=== PATIENT | male | born 2000 ===

== ENCOUNTER → 2018-03-13 | Outpatient (CLI) | payer OTHER ==
[~2018-03-13] MED LIST: AMOX50SU PO; DEXT30SU PO
[2018-03-13 14:42] LABS: BASOPHILS ABSOLUTE AUTO 0.04 K/mm3 (0.00-0.23); BASOPHILS PERCENT AUTO 1 % (0-2); EOSINOPHILS ABSOLUTE AUTO 0.25 K/mm3 (0.00-0.68); EOSINOPHILS PERCENT AUTO 3 % (0-6); Hematocrit 42.9 % (37.0-53.0); Hemoglobin 14.1 g/dL (13.5-17.5); IMMATURE GRAN ABSOLUTE AUTO 0.02 K/mm3 (0.00-0.10); IMMATURE GRAN PERCENT AUTO 0 % (0-1); LYMPHOCYTES ABSOLUTE AUTO 1.84 K/mm3 (0.84-5.20); LYMPHOCYTES PERCENT AUTO 24 % (21-46); MONOCYTES ABSOLUTE AUTO 0.77 K/mm3 (0.16-1.47); MONOCYTES PERCENT AUTO 10 % (4-13); Mean Corpuscular HGB 28.3 pg (26.0-34.0); Mean Corpuscular HGB Conc 32.9 g/dL (31.5-36.5); Mean Corpuscular Volume 86 fL (80-100); Mean Platelet Volume 10.4 fL (9.1-12.4); NEUTROPHILS ABSOLUTE AUTO 4.82 K/mm3 (1.96-9.15); NEUTROPHILS PERCENT AUTO 62 % (41-73); Platelet Count 244 K/mm3 (150-400); RDW Coefficient Variation 12.5 % (11.7-14.2); RDW Standard Deviation 38.6 fL (35.1-46.3); Red Blood Cell Count 4.99 M/mm3 (4.30-5.90); White Blood Cell Count 7.74 K/mm3 (4.00-11.30)
[2018-03-13 14:51] LABS: Alanine Aminotransfer (ALT/SGP 35 U/L (12-78); Alk Phos 131 U/L (40-126); Anion Gap 9 mmol/L (6-16); Aspartate Aminotrans (AST/SGOT 21 U/L (12-37); Bilirubin, Total 0.4 mg/dL (0.1-1.0); Blood Urea Nitrogen 16 mg/dL (8-24); Bun/Creatinine Ratio 15.5 (12.0-20.0); CO2, Blood 28 mmol/L (21-32); Chloride, Blood 104 mmol/L (98-108); Creatinine, Blood 1.03 mg/dL (0.60-1.20); Glomerular Filtration Rate >60 (60-); Glucose, Blood 87 mg/dL (70-99); Potassium, Blood 4.3 mmol/L (3.5-5.5); Sodium, Blood 141 mmol/L (136-145)
== END | disposition home or self-care (01) ==
LOC: LAB EV 14:32 → LAB SHORT 14:32
PROVIDERS: Physician Assistant
DX: R22.42 Localized swelling, mass and lump, left lower limb (principal)
CPT/HCPCS: 80053; 85025

== ENCOUNTER 2023-04-02 20:07 | Emergency (ER) | payer OTHER ==
[~2023-04-02] VITALS: Ht 195.6 cm; Wt 170.1 kg
[2023-04-02 20:24] VITALS: BP 150/86
[2023-04-02] MEDS ORDERED: CEPH500 PO (20:36)
== END 2023-04-02 20:36 | disposition home or self-care (01) ==
LOC: ER 20:07
DX: L03.115 Cellulitis of right lower limb (principal)
CPT/HCPCS: 99282; A9270

== ENCOUNTER 2023-04-08 16:16 | Emergency (ER) | payer OTHER ==
[~2023-04-08] VITALS: Ht 195.6 cm; Wt 170.1 kg
[~2023-04-08 16:16] MED LIST changes: +CEPH500 PO
[2023-04-08 17:22] LABS: BASOPHILS ABSOLUTE AUTO 0.04 K/mm3 (0.00-0.23); BASOPHILS PERCENT AUTO 1 % (0-2); EOSINOPHILS ABSOLUTE AUTO 0.25 K/mm3 (0.00-0.68); EOSINOPHILS PERCENT AUTO 3 % (0-6); Hematocrit 41.8 % (37.0-53.0); Hemoglobin 13.9 g/dL (13.5-17.5); IMMATURE GRAN ABSOLUTE AUTO 0.02 K/mm3 (0.00-0.10); IMMATURE GRAN PERCENT AUTO 0 % (0-1); LYMPHOCYTES ABSOLUTE AUTO 1.86 K/mm3 (0.84-5.20); LYMPHOCYTES PERCENT AUTO 25 % (21-46); MONOCYTES ABSOLUTE AUTO 0.78 K/mm3 (0.16-1.47); MONOCYTES PERCENT AUTO 10 % (4-13); Mean Corpuscular HGB 29.3 pg (26.0-34.0); Mean Corpuscular HGB Conc 33.3 g/dL (31.5-36.5); Mean Corpuscular Volume 88 fL (80-100); NEUTROPHILS PERCENT AUTO 61 % (41-73); Platelet Count 239 K/mm3 (150-400); RDW Coefficient Variation 11.9 % (11.7-14.2); RDW Standard Deviation 38.9 fL (35.1-46.3); Red Blood Cell Count 4.74 M/mm3 (4.30-5.90); White Blood Cell Count 7.55 K/mm3 (4.00-11.30)
[2023-04-08 17:53] LABS: C-REACTIVE PROTEIN, EXT RANGE 1.06 mg/dL (0.000-0.300)
[2023-04-08 17:55] LABS: Albumin/Globulin Ratio 0.9 (0.8-1.8); Bilirubin, Total 0.3 mg/dL (0.1-1.0); Bun/Creatinine Ratio 18.6 (12.0-20.0); Calcium, Blood 8.9 mg/dL (8.5-10.1); Creatinine, Blood 0.91 mg/dL (0.60-1.20); Globulin, Blood 4.3 g/dL (2.2-4.0); Potassium, Blood 3.9 mmol/L (3.5-5.5); Total Protein, Blood 8.3 g/dL (6.4-8.2)
[2023-04-08 19:52] VITALS: BP 140/80
[2023-04-08] MEDS ORDERED: Clindamycin HC150 MG PO (21:07)
== END 2023-04-08 21:22 | disposition home or self-care (01) ==
LOC: ER 16:16
PROVIDERS: Physician Assistant
DX: L03.115 Cellulitis of right lower limb (principal)
CPT/HCPCS: 80053; 85025; 86140; 96374; 99283-25; A9270; J1885

== ENCOUNTER 2023-04-15 22:32 | Emergency (ER) | payer OTHER ==
[~2023-04-15] VITALS: Ht 195.6 cm; Wt 170.1 kg
[~2023-04-15 22:32] MED LIST changes: +Clindamycin HC150 MG PO
[2023-04-15 22:58] VITALS: BP 152/99
[2023-04-16] MEDS ORDERED: Vibramycin100 MG PO (00:44)
== END 2023-04-16 01:07 | disposition home or self-care (01) ==
LOC: ER 22:32
DX: L03.115 Cellulitis of right lower limb (principal); I87.2 Venous insufficiency (chronic) (peripheral); J45.909 Unspecified asthma, uncomplicated
CPT/HCPCS: 99282; A9270

== ENCOUNTER 2023-04-22 03:57 | Inpatient (IN) | payer OTHER ==
[~2023-04-22] VITALS: Ht 195.6 cm; Wt 173.5 kg
[~2023-04-22 03:57] MED LIST changes: +Vibramycin100 MG PO
[2023-04-22 04:39] LABS: BASOPHILS ABSOLUTE AUTO 0.04 K/mm3 (0.00-0.23); BASOPHILS PERCENT AUTO 1 % (0-2); EOSINOPHILS ABSOLUTE AUTO 0.25 K/mm3 (0.00-0.68); EOSINOPHILS PERCENT AUTO 4 % (0-6); Hematocrit 41.3 % (37.0-53.0); Hemoglobin 13.5 g/dL (13.5-17.5); IMMATURE GRAN ABSOLUTE AUTO 0.01 K/mm3 (0.00-0.10); IMMATURE GRAN PERCENT AUTO 0 % (0-1); LYMPHOCYTES ABSOLUTE AUTO 1.69 K/mm3 (0.84-5.20); LYMPHOCYTES PERCENT AUTO 26 % (21-46); MONOCYTES ABSOLUTE AUTO 0.65 K/mm3 (0.16-1.47); MONOCYTES PERCENT AUTO 10 % (4-13); Mean Corpuscular HGB Conc 32.7 g/dL (31.5-36.5); Mean Corpuscular Volume 89 fL (80-100); Mean Platelet Volume 9.9 fL (9.1-12.4); NEUTROPHILS ABSOLUTE AUTO 3.77 K/mm3 (1.96-9.15); NEUTROPHILS PERCENT AUTO 59 % (41-73); Platelet Count 210 K/mm3 (150-400); RDW Coefficient Variation 11.9 % (11.7-14.2); RDW Standard Deviation 37.6 fL (35.1-46.3); Red Blood Cell Count 4.65 M/mm3 (4.30-5.90); White Blood Cell Count 6.41 K/mm3 (4.00-11.30)
[2023-04-22 04:58] LABS: Albumin, Blood 3.6 g/dL (3.4-5.0); Albumin/Globulin Ratio 0.9 (0.8-1.8); Bilirubin, Total 0.4 mg/dL (0.1-1.0); Calcium, Blood 8.8 mg/dL (8.5-10.1); Creatinine, Blood 0.78 mg/dL (0.60-1.20); Globulin, Blood 3.9 g/dL (2.2-4.0); Potassium, Blood 4.2 mmol/L (3.5-5.5); Total Protein, Blood 7.5 g/dL (6.4-8.2)
[2023-04-22 07:47] VITALS: BP 124/89
--- NOTE | 2023-04-22 09:50 | NUR ---
ADMIT: PT ADMITTED TO ROOM 306 @ 0730 THIS SHIFT. IV IN LEFT FOREARM FLUSHES WELL. AT BEDSIDE. PT INDEPENDENT IN ROOM. NO C/O PAIN IN R. LOWER LEG. IGNITION SOURCES IN HOSPITAL GONE OVER WITH PT BY THIS RN AND MANAGER IT SECURITY. PT STATES HE DOES NOT SMOKE AND DOES NOT HAVE A RESEARCH ANIMAL ATTENDANT, MATCHES, OR OTHER FLAMMABLES. PT VERBALIZED UNDERSTANDING. CALL LIGHT IN REACH. NO NEEDS AT THIS TIME.
[2023-04-22 16:58] VITALS: BP 146/76
--- NOTE | 2023-04-22 18:39 | NUR ---
SHIFT SUMMARY: PT A&O X4. PT PLEASANT AND COOPERATIVE WITH CARE. IGNITION SOURCES GONE OVER WITH PT AND AT BEDSIDE. PT DOES NOT SMOKE AND VERBALIZES UNDERSTANDING. PT RECEIVED IV ABX TWICE THIS SHIFT AND TOLERATING WELL. CELLULITIS OUTLINED PER DR. BELLO REQUEST. REDNESS HAS NOT GONE OUTSIDE OF BORDER THIS SHIFT. PT INDEPENDENT IN ROOM. VSS. NO C/O PAIN OR N/V. CALL LIGHT IN REACH. WILL CONTINUE TO MONITOR.
[2023-04-22 19:21] VITALS: BP 125/71
--- NOTE | 2023-04-23 04:13 | NUR ---
SHIFT SUMMARY ADMITTED FOR RLE CELLULITIS. FULL CODE. IV ANTIB RX ARE SCHEDULED. 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 REGULAR DIET, INDEPENDENT, ON RA, A&O X4. FAILED OUTPT PO ANTIB RX PREVIOUS TO ADMIT.
[2023-04-23 05:29] VITALS: BP 132/74
[2023-04-23 07:33] VITALS: BP 124/76
[2023-04-23 07:57] LABS: BASOPHILS ABSOLUTE AUTO 0.03 K/mm3 (0.00-0.23); BASOPHILS PERCENT AUTO 1 % (0-2); EOSINOPHILS PERCENT AUTO 3 % (0-6); Hematocrit 42.9 % (37.0-53.0); Hemoglobin 14.2 g/dL (13.5-17.5); IMMATURE GRAN ABSOLUTE AUTO 0.02 K/mm3 (0.00-0.10); IMMATURE GRAN PERCENT AUTO 0 % (0-1); LYMPHOCYTES ABSOLUTE AUTO 1.36 K/mm3 (0.84-5.20); LYMPHOCYTES PERCENT AUTO 22 % (21-46); MONOCYTES PERCENT AUTO 10 % (4-13); Mean Corpuscular HGB 28.8 pg (26.0-34.0); Mean Corpuscular HGB Conc 33.1 g/dL (31.5-36.5); Mean Corpuscular Volume 87 fL (80-100); Mean Platelet Volume 10.1 fL (9.1-12.4); NEUTROPHILS ABSOLUTE AUTO 3.93 K/mm3 (1.96-9.15); NEUTROPHILS PERCENT AUTO 64 % (41-73); Platelet Count 209 K/mm3 (150-400); RDW Coefficient Variation 11.8 % (11.7-14.2); RDW Standard Deviation 37.9 fL (35.1-46.3); Red Blood Cell Count 4.93 M/mm3 (4.30-5.90); White Blood Cell Count 6.14 K/mm3 (4.00-11.30)
[2023-04-23 08:25] LABS: Albumin, Blood 3.5 g/dL (3.4-5.0); Albumin/Globulin Ratio 0.8 (0.8-1.8); Bilirubin, Total 0.4 mg/dL (0.1-1.0); Bun/Creatinine Ratio 19.1 (12.0-20.0); Calcium, Blood 8.9 mg/dL (8.5-10.1); Creatinine, Blood 0.78 mg/dL (0.60-1.20); Globulin, Blood 4.3 g/dL (2.2-4.0); Potassium, Blood 4.3 mmol/L (3.5-5.5); Total Protein, Blood 7.8 g/dL (6.4-8.2)
[2023-04-23 14:54] VITALS: BP 126/80
[2023-04-23] MEDS ORDERED: SULFAMETHOXAZO1 EAC1 PO (17:31)
--- NOTE | 2023-04-23 17:42 | NUR ---
PT DISCHARGED FROM THE UNIT. IV REMOVED. DISCHARGE INSTRUCTIONS REVIEWED. MEDICATIONS FAXED TO [facility]. INSTRUCTED ON FOLLOW UP APTS. PT AMBULATED OFF THE UNIT
== END 2023-04-23 17:36 | disposition home or self-care (01) | DRG 603 ==
LOC: ER 03:57 → MEDS 06:04
PROVIDERS: Emergency Medicine; Internal Medicine; ADMIT Internal Medicine
DX: L03.115 Cellulitis of right lower limb (principal); Z68.41 Body mass index [BMI] 40.0-44.9, adult; E66.01 Morbid (severe) obesity due to excess calories; J45.909 Unspecified asthma, uncomplicated; I83.93 Asymptomatic varicose veins of bilateral lower extremities; I87.2 Venous insufficiency (chronic) (peripheral); Z79.2 Long term (current) use of antibiotics
CPT/HCPCS: 36415; 80053; 85025; 96374; 96375; 99284-25; A9270; J0690; J2543; J3370; J7050

== ENCOUNTER 2025-07-14 02:50 | Day surgery (SDC) | payer OTHER ==
[~2025-07-14 02:50] MED LIST changes: +SULFAMETHOXAZO1 EAC1 PO
[2025-07-14] MEDS ORDERED: Lidocaine HCl 4% Cream 5 GM ONE (08:20)
== END 2025-07-14 23:00 | disposition home or self-care (01) ==
LOC: WOUND 02:50
DX: I87.311 Chronic venous hypertension (idiopathic) with ulcer of right lower extremity (principal); L97.812 Non-pressure chronic ulcer of other part of right lower leg with fat layer exposed; I87.2 Venous insufficiency (chronic) (peripheral)
CPT/HCPCS: A6213; A9270

== ENCOUNTER 2025-07-22 00:22 | Day surgery (SDC) | payer OTHER | END 2025-07-22 23:00 | disposition home or self-care (01) | LOC: WOUND 00:22 | DX: I87.311 Chronic venous hypertension (idiopathic) with ulcer of right lower extremity (principal); L97.812 Non-pressure chronic ulcer of other part of right lower leg with fat layer exposed; I87.2 Venous insufficiency (chronic) (peripheral) | CPT/HCPCS: A6213; G0463 ==

== ENCOUNTER 2025-07-28 02:34 | Day surgery (SDC) | payer OTHER ==
[2025-07-28] MEDS ORDERED: Lidocaine HCl 4% Cream 5 GM ONE (09:01)
== END 2025-07-28 23:00 | disposition home or self-care (01) ==
LOC: WOUND 02:34
DX: I87.311 Chronic venous hypertension (idiopathic) with ulcer of right lower extremity (principal); L97.812 Non-pressure chronic ulcer of other part of right lower leg with fat layer exposed; I87.2 Venous insufficiency (chronic) (peripheral)
CPT/HCPCS: A6213; A9270

== ENCOUNTER 2025-07-31 06:27 | Emergency (ER) | payer OTHER ==
[~2025-07-31] VITALS: Ht 188 cm; Wt 124.7 kg
[2025-07-31] MEDS ORDERED: CeFAZolin Sodium 2,000 MG in NS 100 ML IV ONE (07:05)
[2025-07-31] MEDS ORDERED: Ketorolac Tromethamine 15mg Vial IV ONE (07:05)
[2025-07-31 07:24] LABS: BASOPHILS ABSOLUTE AUTO 0.04 K/mm3 (0.00-0.23); BASOPHILS PERCENT AUTO 1 % (0-2); EOSINOPHILS ABSOLUTE AUTO 0.17 K/mm3 (0.00-0.68); EOSINOPHILS PERCENT AUTO 2 % (0-6); Hematocrit 38.3 % (37.0-53.0); Hemoglobin 12.5 g/dL (13.5-17.5); IMMATURE GRAN ABSOLUTE AUTO 0.02 K/mm3 (0.00-0.10); IMMATURE GRAN PERCENT AUTO 0 % (0-1); LYMPHOCYTES ABSOLUTE AUTO 1.21 K/mm3 (0.84-5.20); LYMPHOCYTES PERCENT AUTO 15 % (21-46); MONOCYTES ABSOLUTE AUTO 0.95 K/mm3 (0.16-1.47); MONOCYTES PERCENT AUTO 11 % (4-13); Mean Corpuscular HGB Conc 32.6 g/dL (31.5-36.5); Mean Corpuscular Volume 86 fL (80-100); NEUTROPHILS ABSOLUTE AUTO 5.98 K/mm3 (1.96-9.15); NEUTROPHILS PERCENT AUTO 71 % (41-73); NRBC ABSOLUTE 0.00 K/mm3 (0.00-0.02); NRBC Auto 0.0 /100 WBC (0.0-0.2); Platelet Count 253 K/mm3 (150-400); RDW Coefficient Variation 12.7 % (11.7-14.2); RDW Standard Deviation 40.1 fL (35.1-46.3)
[2025-07-31 07:43] LABS: Alanine Aminotransfer (ALT/SGP 36.0 U/L (12-78); Albumin, Blood 3.5 g/dL (3.4-5.0); Albumin/Globulin Ratio 0.8 (0.8-1.8); Anion Gap 7.0 mmol/L (3-11); Aspartate Aminotrans (AST/SGOT 21.0 U/L (12-37); Bilirubin, Total 0.5 mg/dL (0.1-1.0); Blood Urea Nitrogen 14.0 mg/dL (8-24); CO2, Blood 25.0 mmol/L (21-32); Calcium, Blood 8.6 mg/dL (8.5-10.1); Chloride, Blood 109.0 mmol/L (98-108); Creatinine, Blood 0.71 mg/dL (0.60-1.20); Globulin, Blood 4.3 g/dL (2.2-4.0); Glucose, Blood 106.0 mg/dL (70-99); Potassium, Blood 4.0 mmol/L (3.5-5.5); Sodium, Blood 137.0 mmol/L (136-145); Total Protein, Blood 7.8 g/dL (6.4-8.2)
[2025-07-31 10:00] VITALS: BP 141/88
== END 2025-07-31 10:28 | disposition home or self-care (01) ==
LOC: ER 06:27
PROVIDERS: Student in an Organized Health Care Education/Training Program
DX: L03.115 Cellulitis of right lower limb (principal); I87.8 Other specified disorders of veins
CPT/HCPCS: 73701; 80053; 83605; 85025; 96365-59; 96375; 99284-25; A9270; J0690; J1885; Q9967

== ENCOUNTER 2025-08-02 07:43 | Observation (INO) | payer OTHER ==
[~2025-08-02] VITALS: Ht 195.6 cm; Wt 166.5 kg
[2025-08-02] MEDS ORDERED: CeFAZolin Sodium 2,000 MG in NS 100 ML IV ONE (08:25)
[2025-08-02 08:30] LABS: BASOPHILS ABSOLUTE AUTO 0.04 K/mm3 (0.00-0.23); BASOPHILS PERCENT AUTO 1 % (0-2); EOSINOPHILS ABSOLUTE AUTO 0.17 K/mm3 (0.00-0.68); EOSINOPHILS PERCENT AUTO 2 % (0-6); Hematocrit 40.4 % (37.0-53.0); Hemoglobin 13.1 g/dL (13.5-17.5); IMMATURE GRAN ABSOLUTE AUTO 0.02 K/mm3 (0.00-0.10); IMMATURE GRAN PERCENT AUTO 0 % (0-1); LYMPHOCYTES ABSOLUTE AUTO 1.17 K/mm3 (0.84-5.20); LYMPHOCYTES PERCENT AUTO 16 % (21-46); MONOCYTES ABSOLUTE AUTO 0.53 K/mm3 (0.16-1.47); MONOCYTES PERCENT AUTO 7 % (4-13); Mean Corpuscular HGB Conc 32.4 g/dL (31.5-36.5); Mean Corpuscular Volume 88 fL (80-100); NEUTROPHILS ABSOLUTE AUTO 5.34 K/mm3 (1.96-9.15); NEUTROPHILS PERCENT AUTO 73 % (41-73); NRBC ABSOLUTE 0.00 K/mm3 (0.00-0.02); NRBC Auto 0.0 /100 WBC (0.0-0.2); Platelet Count 281 K/mm3 (150-400); RDW Coefficient Variation 12.5 % (11.7-14.2); RDW Standard Deviation 39.9 fL (35.1-46.3)
[2025-08-02 08:46] LABS: Alanine Aminotransfer (ALT/SGP 41.0 U/L (12-78); Albumin, Blood 3.3 g/dL (3.4-5.0); Albumin/Globulin Ratio 0.7 (0.8-1.8); Anion Gap 7.0 mmol/L (3-11); Aspartate Aminotrans (AST/SGOT 24.0 U/L (12-37); Bilirubin, Total 0.4 mg/dL (0.1-1.0); Blood Urea Nitrogen 16.0 mg/dL (8-24); C-REACTIVE PROTEIN, EXT RANGE 10.2 mg/dL (0.000-0.300); CO2, Blood 24.0 mmol/L (21-32); Calcium, Blood 9.0 mg/dL (8.5-10.1); Chloride, Blood 111.0 mmol/L (98-108); Creatinine, Blood 0.69 mg/dL (0.60-1.20); Globulin, Blood 4.9 g/dL (2.2-4.0); Glucose, Blood 118.0 mg/dL (70-99); Potassium, Blood 3.9 mmol/L (3.5-5.5); Sodium, Blood 138.0 mmol/L (136-145); Total Protein, Blood 8.2 g/dL (6.4-8.2)
[2025-08-02] MEDS ORDERED: Vancomycin (Pharmacy Consult) IV SCH (10:00)
[2025-08-02] MEDS ORDERED: Vancomycin HCL 2,500 MG in NS 500 ML IV ONE (10:30)
--- NOTE | 2025-08-02 12:29 | NUR ---
CALLED TO GET REPORT FROM ED FOR PATIENT COMING TO [phone]. REPORT FROM STEF. AT 0727
[2025-08-02 12:56] VITALS: BP 124/69
[2025-08-02] MEDS ORDERED: Ondansetron HCl 2 MG / ML 2ML Vial IV PRN (13:00)
[2025-08-02] MEDS ORDERED: NS 250 ML IV PRN (13:45)
[2025-08-02] MEDS ORDERED: CeFAZolin Sodium 2,000 MG in NS 100 ML IV SCH (14:00)
[2025-08-02] MEDS ORDERED: HYDROmorphone HCl/Pf 1MG SYR IV ONE (14:45)
[2025-08-02] MEDS ORDERED: HYDROmorphone HCl/Pf 1MG SYR ONE (14:45)
--- NOTE | 2025-08-02 17:11 | NUR ---
SHIFT SUMMARY PATIENT IS A&OX4, PLEASANT AND COOPERATIVE WITH CARE. HE IS INDEPENDENT AND ON ROOM AIR, WITHOUT TELE. HIS PAIN IS WELL CONTROLLED CURRENTLY. TREATED FOR PAIN PER EMAR. HE IS CURRENTLY LAYING IN THE BED, BED IS LOW AND LOCKED, CALL LIGHT IN REACH.
[2025-08-02 19:40] VITALS: BP 117/74
--- NOTE | 2025-08-03 03:40 | NUR ---
DEADENER SUMMARY VSS. DX OF CELLULITIS OF RLE. A/O X 4. COOPERATIVE WITH CARE.UP AD DICK NEEDED, ABLE TO REPOSITION SELF IN BED WITHOUT NEED FOR ASSIST. RLE SLIGHT SWELLING, REMAINS RY WRAPPED AND ENCOURAGED ELEVATION WHILE IN BED. IV ANTIBIOTICS AND ANALGESICS ADMIN NEEDED - SEE MAR FOR DETAILS. HAS BEEN RESTING QUIETLY WITH HOB ELEVATED FOR COMFORT WITH FEW INTERRUPTIONS. CALL LIGHT IN REACH, RAILS UP X 2 AND BED IN LOW POSITION FOR SAFETY. WILL CONT TO MONITOR.
[2025-08-03 04:31] VITALS: BP 120/72
[2025-08-03 05:39] LABS: BASOPHILS ABSOLUTE AUTO 0.02 K/mm3 (0.00-0.23); BASOPHILS PERCENT AUTO 0 % (0-2); EOSINOPHILS ABSOLUTE AUTO 0.19 K/mm3 (0.00-0.68); EOSINOPHILS PERCENT AUTO 3 % (0-6); Hematocrit 39.2 % (37.0-53.0); Hemoglobin 12.5 g/dL (13.5-17.5); IMMATURE GRAN ABSOLUTE AUTO 0.02 K/mm3 (0.00-0.10); IMMATURE GRAN PERCENT AUTO 0 % (0-1); LYMPHOCYTES ABSOLUTE AUTO 1.83 K/mm3 (0.84-5.20); LYMPHOCYTES PERCENT AUTO 26 % (21-46); MONOCYTES ABSOLUTE AUTO 0.63 K/mm3 (0.16-1.47); MONOCYTES PERCENT AUTO 9 % (4-13); Mean Corpuscular HGB Conc 31.9 g/dL (31.5-36.5); Mean Corpuscular Volume 89 fL (80-100); NEUTROPHILS ABSOLUTE AUTO 4.35 K/mm3 (1.96-9.15); NEUTROPHILS PERCENT AUTO 62 % (41-73); NRBC ABSOLUTE 0.00 K/mm3 (0.00-0.02); NRBC Auto 0.0 /100 WBC (0.0-0.2); Platelet Count 312 K/mm3 (150-400); RDW Coefficient Variation 12.5 % (11.7-14.2); RDW Standard Deviation 41.1 fL (35.1-46.3)
[2025-08-03 06:13] LABS: Alanine Aminotransfer (ALT/SGP 33.0 U/L (12-78); Albumin, Blood 3.0 g/dL (3.4-5.0); Albumin/Globulin Ratio 0.6 (0.8-1.8); Anion Gap 8.0 mmol/L (3-11); Aspartate Aminotrans (AST/SGOT 16.0 U/L (12-37); Bilirubin, Total 0.3 mg/dL (0.1-1.0); Blood Urea Nitrogen 13.0 mg/dL (8-24); CO2, Blood 25.0 mmol/L (21-32); Calcium, Blood 8.9 mg/dL (8.5-10.1); Chloride, Blood 109.0 mmol/L (98-108); Creatinine, Blood 0.85 mg/dL (0.60-1.20); Globulin, Blood 4.9 g/dL (2.2-4.0); Glucose, Blood 94.0 mg/dL (70-99); Potassium, Blood 3.9 mmol/L (3.5-5.5); Sodium, Blood 138.0 mmol/L (136-145); Total Protein, Blood 7.9 g/dL (6.4-8.2)
[2025-08-03 07:29] VITALS: BP 115/77
[2025-08-03 09:55] LABS: Vancomycin, Trough 22.2 ug/mL (5.0-10.0)
--- NOTE | 2025-08-03 10:23 | NUR ---
CALL FROM PHARMACY AT 0953 TO NOTIFY OF VANCO TROUGH 22. DOCTOR NOT NOTIFIED DUE TO THIS IS MANAGED BY THE PHARMACY. PHARMACY MOVED VANCO TREATMENT OUT 2 HOURS FROM 10AM TO 12PM
[2025-08-03] MEDS ORDERED: Pentoxifylline400 MG PO (10:26)
[2025-08-03] MEDS ORDERED: ALPR1 PO (10:27)
--- NOTE | 2025-08-03 16:09 | NUR ---
Upon receiving a referral for spiritual care, I visited the patient. He is lying in bed and alert. His mother is bedside. The patient tells me about his medical problems and the pain that pain that he was enduring but that is much improved today. He tells me about his and two sons (one son is 2 y/o the other 2 mos/o) at home and how much he would rather be there. I provided therapeutic listening, laughter and a calming presence. THe patient should signs of an elevated mood.
[2025-08-03 16:25] VITALS: BP 132/80
[2025-08-03 19:48] VITALS: BP 130/76
[2025-08-04 04:46] VITALS: BP 99/86
--- NOTE | 2025-08-04 05:24 | NUR ---
PT INDEPENDENT IN ROOM. NO ACUTE EVENTS. VITALS STABLE. MEDICATED ONCE FOR PAIN PER EMAR.
[2025-08-04 07:35] VITALS: BP 124/71
[2025-08-04] MEDS ORDERED: CEPH500 PO (11:57)
[2025-08-04] MEDS ORDERED: TRAM50 PO (11:58)
--- NOTE | 2025-08-04 12:16 | NUR ---
DISCHARGE NOTE: WENT OVER DISCHARGE WITH THE PATIENT, IV REMOVED, PATIENT GOT HIMSELF DRESSED. WOUND CARE COMPLETED AND SENT PATIENT WITH SUPPLIES. PATIENT WHEELED DOWN BY ACID CONDITIONER. NO SIGNS OR SYMPTOMS OF DISTRESS DURING DISCHARGE.
== END 2025-08-04 12:23 | disposition home or self-care (01) ==
LOC: ER 07:43 → SURS 11:07 → MEDS 12:36
PROVIDERS: Emergency Medicine; ADMIT Internal Medicine
DX: L03.115 Cellulitis of right lower limb (principal); T81.41XA Infection following a procedure, superficial incisional surgical site, initial encounter; L02.415 Cutaneous abscess of right lower limb; I87.2 Venous insufficiency (chronic) (peripheral); Z86.14 Personal history of Methicillin resistant Staphylococcus aureus infection; Z79.2 Long term (current) use of antibiotics; Y83.8 Other surgical procedures as the cause of abnormal reaction of the patient, or of later complication, without mention of misadventure at the time of the procedure
CPT/HCPCS: 10060; 10160; 36415; 73701; 80053; 80202; 85025; 85651; 86140; 87070; 87075; 87077; 87102; 87147; 87186; 87205; 96365-59; 96366; 96366-59; 96367-59; 96375; 96376; 99285-25; A9270; G0378; J0690; J1171; J3373; J7040; J7050; Q9967

== ENCOUNTER 2025-08-12 02:39 | Day surgery (SDC) | payer OTHER ==
[~2025-08-12 02:39] MED LIST changes: +ALPR1 PO; +Pentoxifylline400 MG PO; +TRAM50 PO
[2025-08-12] MEDS ORDERED: Lidocaine HCl 4% Cream 5 GM ONE (09:32)
== END 2025-08-12 23:00 | disposition home or self-care (01) ==
LOC: WOUND 02:39
DX: I87.311 Chronic venous hypertension (idiopathic) with ulcer of right lower extremity (principal); L97.812 Non-pressure chronic ulcer of other part of right lower leg with fat layer exposed; L02.415 Cutaneous abscess of right lower limb
CPT/HCPCS: A6213; A9270; G0463

== ENCOUNTER 2025-08-20 02:58 | Day surgery (SDC) | payer OTHER ==
[~2025-08-20 02:58] MED LIST changes: +Lidocaine HCl 4% Cream 5 GM ONE
== END 2025-08-20 23:00 | disposition home or self-care (01) ==
LOC: WOUND 02:58
DX: I87.311 Chronic venous hypertension (idiopathic) with ulcer of right lower extremity (principal); L97.812 Non-pressure chronic ulcer of other part of right lower leg with fat layer exposed; L02.415 Cutaneous abscess of right lower limb
CPT/HCPCS: A6213; A9270

== ENCOUNTER 2025-09-02 02:35 | Day surgery (SDC) | payer OTHER ==
[~2025-09-02 02:35] MED LIST changes: -Lidocaine HCl 4% Cream 5 GM ONE
[2025-09-02] MEDS ORDERED: Lidocaine HCl 4% Cream 5 GM ONE (09:17)
== END 2025-09-02 23:00 | disposition home or self-care (01) ==
LOC: WOUND 02:35
DX: I87.311 Chronic venous hypertension (idiopathic) with ulcer of right lower extremity (principal); L97.812 Non-pressure chronic ulcer of other part of right lower leg with fat layer exposed; L02.415 Cutaneous abscess of right lower limb; I87.2 Venous insufficiency (chronic) (peripheral)
CPT/HCPCS: A6213; A9270; G0463